=== PATIENT | female | born 1975 | race Caucasian/White ===

== ENCOUNTER 2017-11-23 21:24 | Emergency (ER) | payer OTHER ==
[2017-11-23 21:31] VITALS: RESP 18
--- NOTE | 2017-11-23 22:11 | ED ---
General Adult HPI - General Chief complaint: Skin/Abscess/Foreign Body Stated complaint: Ankle wound Time Seen by Provider: 11/23/17 21:36 Source: patient Mode of arrival: ambulatory Limitations: no limitations - History of Present Illness Initial comments: 42-year-old female presents to the emergency department for complaints of an ulcer on the medial malleolus of the left ankle. Patient states this ulcer has been visible for 2 months. She states she was wearing a boot that didn't fit properly and caused ulcer. 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 She is currently staying at [facility]. Patient states that 5 days ago the physician at [facility] prescribed her Bactrim for the ulcer. She states it has improved somewhat but is still painful. Patient denies any spreading of redness around the ulcer. Patient denies any fevers or chills. Patient does admit to some pain in the left leg with walking. Patient states she is ALLERGIC to Keflex. - Related Data Allergies Allergy/AdvReac Type Severity Reaction Status Date / Time cephalexin [From Keflex] Allergy Anaphylaxis Verified 11/23/17 21:31 Review of Systems ROS Statement: Those systems with pertinent positive or pertinent negative responses have been documented in the HPI. ROS Other: All systems not noted in ROS Statement are negative. Past Medical History Additional Past Medical History / Comment(s): HIV positive History of Any Multi-Drug Resistant Organisms: None Reported Additional Past Surgical History / Comment(s): wrist left Past Psychological History: Anxiety, Depression Smoking Status: Current every day smoker Past Alcohol Use History: None Reported Past Drug Use History: Heroin General Exam Limitations: no limitations Respiratory exam: Present: normal lung sounds bilaterally. Absent: respiratory distress, wheezes, rales, rhonchi, stridor Cardiovascular Exam: Present: regular rate, normal rhythm, normal heart sounds. Absent: systolic murmur, diastolic murmur, rubs, gallop, clicks Extremities exam: Present: full ROM, tenderness (To the left foot.), joint swelling, other (3 cm x 4 cm also noted on the left medial malleolus of the ankle. Signal detected of the left popliteal artery. Signal not detected of the left posterior tibial and left pedal pulses however capillary refill intact. ). Absent: calf tenderness Course Vital Signs 11/23/17 21:25 Temperature 97.9 F Pulse Rate 78 Respiratory 18 Rate Blood Pressure 124/75 O2 Sat by Pulse 99 Oximetry Medical Decision Making - Medical Decision Making 42-year-old female presents to the emergency department for chief complaint of ulcer on the left medial malleolus of the ankle. Patient states it has been there for about 2 months. She started a 10 day course of Bactrim about 5 days ago. She is currently staying at [facility]. Patient was an IV drug user but has been clean for 2 months. Patient denies history of diabetes. Patient states the wound is starting to look slightly better with the Bactrim. Patient states she has had vascular issues for some time. Stasis dermatitis noted on the left lower extremity. Signal was found for left popliteal artery. It is not located for left posterior tibial and pedal pulses. However capillary refill is intact. Distal portion of foot is cool but not cold. Patient states the ulcer occurred from wearing notes that didn't fit correctly. Patient denies any sudden or sharp pain. I am confident this is a chronic bloodflow issue. Patient will follow-up with vascular surgery in the next week. She stated multiple times that she would be able to do this. Patient will take a full aspirin and continue Bactrim as directed. Patient will keep the wound dressed in the meantime. Disposition Clinical Impression: Ulcer Disposition: HOME SELF-CARE Condition: Good Instructions: Pressure Ulcer (ED) Additional Instructions: Please return to the emergency department if you notice a sudden increase of pain in the left foot. Please follow-up with vascular surgery this week. Continue Bactrim as directed and take a full strength aspirin daily. Referrals: None,Stated [Primary Care Provider] - 1-2 days Joseph Hampton MD [STAFF PHYSICIAN] - 1-2 days Time of Disposition: 22:10
[2017-11-23 22:30] VITALS: BP 133/80; PULSE 77; TEMP 97.3
== END 2017-11-23 22:30 | disposition home or self-care (01) ==
LOC: EC 21:24
DX: L97.329 Non-pressure chronic ulcer of left ankle with unspecified severity (principal); F17.200 Nicotine dependence, unspecified, uncomplicated; Z21 Asymptomatic human immunodeficiency virus [HIV] infection status; Z88.1 Allergy status to other antibiotic agents
CPT/HCPCS: 99282